=== PATIENT | male | born 2005 | race Two or more races ===

== ENCOUNTER 2024-02-26 11:47 | Emergency (ER) | payer MEDICAID ==
[~2024-02-26] VITALS: Ht 167.6 cm; Wt 97.7 kg
[2024-02-26 12:07] VITALS: TEMP 97.8
[2024-02-26] MEDS ORDERED: CIPR250T6 PO (13:20)
[2024-02-26 13:30] VITALS: BP 130/62; PULSE 85; RESP 18
== END 2024-02-26 13:57 | disposition home or self-care (01) ==
LOC: EMS 11:47
DX: N45.1 Epididymitis (principal); L72.0 Epidermal cyst
CPT/HCPCS: 76870; 99284; Z7502

== ENCOUNTER 2024-03-01 13:40 | Emergency (ER) | payer MEDICAID ==
[~2024-03-01] VITALS: Ht 165.1 cm; Wt 82.0 kg
[~2024-03-01 13:40] MED LIST: CIPR250T6 PO
[2024-03-01 13:47] VITALS: TEMP 98.3
[2024-03-01 14:58] VITALS: BP 126/68; PULSE 87; RESP 16; O2SAT 98
== END 2024-03-01 15:10 | disposition home or self-care (01) ==
LOC: EMS 13:40
DX: M54.10 Radiculopathy, site unspecified (principal); R10.84 Generalized abdominal pain
CPT/HCPCS: 99281; Z7502

== ENCOUNTER 2024-03-03 19:45 | Emergency (ER) | payer MEDICAID ==
[~2024-03-03] VITALS: Ht 165.1 cm; Wt 83.2 kg
[2024-03-03 20:01] VITALS: TEMP 97.8
[2024-03-04 02:00] VITALS: BP 131/84; PULSE 91; RESP 16; O2SAT 96
[2024-03-04] MEDS: DOXYCYCLINE HYCLATE 100 MG TABLET PO ONE (02:07)
[2024-03-04] MEDS: TraMADol HCL 50 MG TABLET PO ONE (02:07)
[2024-03-04] MEDS ORDERED: TRAM50TA5 PO (02:10)
[2024-03-04] MEDS ORDERED: DOXY-354 PO (02:10)
== END 2024-03-04 02:18 | disposition home or self-care (01) ==
LOC: EMS 19:45
DX: N45.1 Epididymitis (principal); F12.90 Cannabis use, unspecified, uncomplicated
CPT/HCPCS: 76870; 99284; Z7502; Z7610

== ENCOUNTER 2024-03-16 13:16 | Emergency (ER) | payer MEDICAID ==
[~2024-03-16] VITALS: Ht 165.1 cm; Wt 83.2 kg
[~2024-03-16 13:16] MED LIST changes: -CIPR250T6 PO; +DOXY-354 PO; +TRAM50TA5 PO
[2024-03-16 13:29] VITALS: TEMP 98.3
[2024-03-16 15:39] LABS: BASOPHILS % (AUTO) 0.5 % (0.0-2.0); EOSINOPHILS % (AUTO) 1.6 % (1.0-6.0); HEMATOCRIT 49.6 % (41-53); HEMOGLOBIN 16.4 g/dL (13.5-17.5); LYMPHOCYTES # (AUTO) 1.8 K/uL (1.0-4.8); LYMPHOCYTES % (AUTO) 20.6 % (22.0-44.0); MEAN CORPUSCULAR HEMOGLOBIN 32.4 pg (26.0-34.0); MEAN CORPUSCULAR VOLUME 98 fL (80-100); MONOCYTES # (AUTO) 0.6 K/uL (0.1-1.0); MONOCYTES % (AUTO) 6.3 % (2.0-9.0); NEUTROPHILS # (AUTO) 6.3 K/uL (1.8-7.7); PLATELET COUNT (AUTO) 321 K/uL (150-450); RED BLOOD CELL COUNT(AUTO) 5.06 MIL/uL (4.50-5.90); RED CELL DISTRIBUTION WIDTH 12.6 % (11.5-14.5); WHITE BLOOD COUNT (AUTO) 8.9 K/uL (4.5-11.0)
[2024-03-16 15:51] LABS: ANION GAP 11 mmol/L (8-16); CALCIUM, TOTAL 9.1 mg/dL (8.8-10.5); CARBON DIOXIDE 26 mmol/L (22-29); CHLORIDE 102 mmol/L (98-107); CREATININE 0.86 mg/dL (0.60-1.30); GLOMERULAR FILTR. RATE CALC > 60 mL/min (>60); GLUCOSE,RANDOM 90 mg/dL (70-110); POTASSIUM 3.9 mmol/L (3.5-5.1); SODIUM SERUM 139 mmol/L (136-145); UREA NITROGEN, BLOOD 13 mg/dL (7-18)
[2024-03-16 17:03] LABS: APPEARANCE,URINE CLEAR (CLEAR); BILIRUBIN,URINE NEGATIVE (NEGATIVE); COLOR,URINE LIGHT YELLOW (YELLOW); GLUCOSE, URINE (UA) NEGATIVE (NEGATIVE); LEUKOCYTE ESTERASE ,URINE NEGATIVE (NEGATIVE); NITRATE,URINE NEGATIVE (NEGATIVE); OCCULT BLOOD,URINE NEGATIVE (NEGATIVE); PROTEIN,URINE TRACE mg/dL (NEGATIVE); SPECIFIC GRAVITIY, URINE 1.029 (1.003-1.030); UROBILINOGEN,URINE <=1.0 mg/dL (<=1.0)
[2024-03-16 17:18] LABS: BACTERIA,URINE Rare /HPF (None Seen); RBC,URINE 0-2 /HPF (0-2); SQUAMOUS EPITHELIAL CELL,UR Rare /LPF (None Seen); WBC,URINE 0-2 /HPF (0-5)
[2024-03-16 17:25] VITALS: BP 129/61; PULSE 74; RESP 20; O2SAT 100
[2024-03-16] MEDS ORDERED: IBUP-1554 PO (18:17)
[2024-03-16] MEDS ORDERED: ACET-66 PO (18:17)
== END 2024-03-16 18:30 | disposition home or self-care (01) ==
LOC: EMS 13:16
DX: N50.812 Left testicular pain (principal)
CPT/HCPCS: 80048; 81001; 85025; 99283